=== PATIENT | male | born 2000 | race Two or more races ===

== ENCOUNTER 2020-01-09 22:47 | Emergency (ER) | payer OTHER ==
[~2020-01-09] VITALS: Ht 175.3 cm; Wt 94.8 kg
[2020-01-09 22:54] VITALS: BP 131/66
--- NOTE | 2020-01-09 23:08 | NUR ---
ERP AT BEDSIDE
== END 2020-01-10 00:38 | disposition home or self-care (01) ==
LOC: ED 23:42
DX: S40.811A Abrasion of right upper arm, initial encounter (principal); R07.89 Other chest pain; V49.59XA Passenger injured in collision with other motor vehicles in traffic accident, initial encounter; Y93.89 Activity, other specified; Y92.89 Other specified places as the place of occurrence of the external cause; Y99.8 Other external cause status
CPT/HCPCS: 71045; 99284